=== PATIENT | male | born 2000 | race Two or more races ===

== ENCOUNTER 2019-05-02 19:43 | Emergency (ER) | payer MEDICAID ==
[~2019-05-02] VITALS: Ht 177.8 cm; Wt 97.5 kg
[2019-05-03 00:09] VITALS: BP 108/61
== END 2019-05-03 00:32 | disposition home or self-care (01) ==
LOC: ER 19:54
DX: S53.402A Unspecified sprain of left elbow, initial encounter (principal); W21.03XA Struck by baseball, initial encounter; Y93.89 Activity, other specified; Y92.89 Other specified places as the place of occurrence of the external cause; Y99.8 Other external cause status
CPT/HCPCS: 73080